=== PATIENT | female | born 1990 | race Caucasian/White ===

== ENCOUNTER 2019-12-21 23:40 | Emergency (ER) | payer SELFPAY ==
[2019-12-22 00:17] LABS: Absolute Lymphocytes (CBC) 4.2 K/uL (0.7-4.9); Basophils % 0.8 % (0-1.3); Hematocrit 41.3 % (36.0-45.0); Lymphocytes % 29.3 % (15.3-44.8); MPV 8.5 fL (7.6-11.3); RBC Red Blood Cell Count 4.74 M/uL (3.86-4.86)
[2019-12-22] MEDS ORDERED: FAMOTIDINE 20 MG/2 ML VIAL IV ONE (00:18)
[2019-12-22] MEDS ORDERED: ONDANSETRON 4 MG/2 ML VIAL ONE (00:18)
[2019-12-22] MEDS ORDERED: MORPHINE 4 MG/ML SYR ONE (00:18)
[2019-12-22] MEDS ORDERED: NA CHLORIDE 0.9% 1,000 ML ONE (00:19)
[2019-12-22 00:27] LABS: ALT/SGPT 31 U/L (12-78); AST/SGOT 18 U/L (15-37); Albumin 3.8 g/dL (3.4-5.0); Alkaline Phosphatase 90 U/L (45-117); BUN Blood Urea Nitrogen 11 mg/dL (7-18); Bicarbonate 26 mmol/L (21-32); Bilirubin Direct < 0.1 mg/dL (0-0.2); Bilirubin Total 0.2 mg/dL (0.2-1.0); Glucose Level 149 mg/dL (74-106); Lipase 193 U/L (73-393); Potassium 3.6 mmol/L (3.5-5.1); Protein, Total 8.1 g/dL (6.4-8.2); Sodium Level 140 mmol/L (136-145)
[2019-12-22] MEDS ORDERED: KETOROLAC 30 MG/ML INJ ONE (01:44)
--- NOTE | 2019-12-22 04:03 | EDPHYS ---
Physician Documentation [facility] Name: Maricel Karimi Age: 29 yrs Sex: Female : 1990 Arrival Date: 12/21/2019 Time: 23:43 Bed 6 Private MD: ED Physician Jimmie Faulkner HPI: 12/21 00:09 This 29 yrs old Female presents to ER via Ambulatory with complaints of mh7 GALLBLADDER ATTACK. 00:09 The patient presents with abdominal pain in the epigastric area. Onset: The mh7 symptoms/episode began/occurred 1 week(s) ago. 00:12 The symptoms radiate to back. Associated signs and symptoms: Pertinent positives: mh7 nausea, Pertinent negatives: anorexia, blood in stools, chest pain, constipation, diarrhea, dysuria, fever, headache, hematuria, palpitations, shortness of breath, vaginal discharge, vomiting, vomiting blood. The symptoms are described as intermittent, vague, waxing/waning. Modifying factors: The symptoms are alleviated by nothing, the symptoms are aggravated by food. Severity of pain: At its worst the pain was moderate today, in the emergency department the pain is unchanged. 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 - Social history:: Smoking status: Patient denies any tobacco usage or history of. ROS: 12/21 00:12 Constitutional: Negative for fever, chills, and weight loss, Eyes: Negative for injury, mh7 pain, redness, and discharge, ENT: Negative for injury, pain, and discharge, Neck: Negative for injury, pain, and swelling, Cardiovascular: Negative for chest pain, palpitations, and edema, Respiratory: Negative for shortness of breath, cough, wheezing, and pleuritic chest pain, : Negative for injury, bleeding, discharge, and swelling, MS/Extremity: Negative for injury and deformity, Skin: Negative for injury, rash, and discoloration, Neuro: Negative for headache, weakness, numbness, tingling, and seizure, Psych: Negative for depression, anxiety, suicide ideation, homicidal ideation, and hallucinations, Allergy/Immunology: Negative for hives, rash, and allergies, Endocrine: Negative for neck swelling, polydipsia, polyuria, polyphagia, and marked weight changes, Hematologic/Lymphatic: Negative for swollen nodes, abnormal bleeding, and unusual bruising. Exam: 00:12 Head/Face: Normocephalic, atraumatic. Eyes: Pupils equal round and reactive to light, mh7 extra-ocular motions intact. Lids and lashes normal. Conjunctiva and sclera are non-icteric and not injected. Cornea within normal limits. Periorbital areas with no swelling, redness, or edema. Neck: Trachea midline, no thyromegaly or masses palpated, and no cervical lymphadenopathy. Supple, full range of motion without nuchal rigidity, or vertebral point tenderness. No Meningismus. Chest/axilla: Normal chest wall appearance and motion. Nontender with no deformity. No lesions are appreciated. Cardiovascular: Regular rate and rhythm with a normal S1 and S2. No gallops, murmurs, or rubs. Normal PMI, no JVD. No pulse deficits. Respiratory: Lungs have equal breath sounds bilaterally, clear to auscultation and percussion. No rales, rhonchi or wheezes noted. No increased work of breathing, no retractions or nasal flaring. 00:12 Back: No spinal tenderness. No costovertebral tenderness. Full range of motion. Skin: Warm, dry with normal turgor. Normal color with no rashes, no lesions, and no evidence of cellulitis. MS/ Extremity: Pulses equal, no cyanosis. Neurovascular intact. Full, normal range of motion. Neuro: Awake and alert, GCS 15, oriented to person, place, time, and situation. Cranial nerves II-XII grossly intact. Motor strength 5/5 in all extremities. Sensory grossly intact. Cerebellar exam normal. Normal gait. Psych: Awake, alert, with orientation to person, place and time. Behavior, mood, and affect are within normal limits. 00:12 Constitutional: The patient appears in no acute distress, alert, awake, uncomfortable. 00:12 Abdomen/GI: Inspection: abdomen appears normal, Bowel sounds: normal, in all quadrants, Palpation: moderate abdominal tenderness, in the epigastric area, Rectal exam: the exam is deferred, because of patient request, Indicators: McBurney's point is not tender, Short's sign is negative, Rovsing's sign is negative, Obturator sign is negative, Psoas sign is negative, Liver: no appreciated palpable abnormalities, Hernia: not appreciated. Vital Signs: 12/20 23:50 BP 131 / 74; Pulse 88; Resp 16; Temp 98.4; Pulse Ox 100% on R/A; Weight 68.04 kg; iw Height 5 ft. 0 in. (152.40 cm); Pain 8/10; 12/21 00:25 BP 118 / 70; Pulse 85; Resp 16; Pulse Ox 99% ; Pain 5/10; mt2 01:24 BP 98 / 66; Pulse 70; Resp 16; Pulse Ox 98% on R/A; Pain 4/10; mt2 02:05 BP 99 / 68; Pulse 65; Resp 16; Pulse Ox 100% ; Pain 0/10; mt2 03:03 BP 116 / 65; Pulse 58; Resp 16; Pulse Ox 99% on R/A; Pain 0/10; mt2 04:12 BP 119 / 44; Pulse 57; Resp 16; Pulse Ox 99% ; Pain 0/10; mt2 12/20 23:50 Body Mass Index 29.29 (68.04 kg, 152.40 cm) iw MDM: 00:03 Patient medically screened. 7 04:00 Differential diagnosis: bowel obstruction, cholecystitis, Cholelithiasis, Ectopic mh7 , gastritis, gastroesophageal reflux disease, non-specific abd pain, Peptic Ulcer Disease, Perf. Duodenal Ulcer, Perf. Gastric Ulcer, Ureterolithiasis, urinary tract infection. Data reviewed: vital signs, nurses notes. Data interpreted: Pulse oximetry: on room air is 99 %. Interpretation: normal. Counseling: I had a detailed discussion with the patient and/or guardian regarding: the historical points, exam findings, and any diagnostic results supporting the discharge/admit diagnosis, lab results, radiology results, the need for outpatient follow up, to return to the emergency department if symptoms worsen or persist or if there are any questions or concerns that arise at home. Response to treatment: the patient's symptoms have resolved after treatment, the patient's blood pressure is in an acceptable range, mental status has returned to baseline, the patient no longer shows bradycardia, the patient is not short of breath, the patient is not tachycardic, the patient's pain is gone, the patient's temperature has normalized, the patient is now symptom free, patient is well hydrated. Physician consultation: Momo Landers MD regarding patient's condition, and will see patient in office. 12/20 23:51 Order name: Basic Metabolic Panel; Complete Time: 00:32 [facility] 12/20 23:51 Order name: CBC with Diff; Complete Time: 00:27 [facility] 12/20 23:51 Order name: Hepatic Function; Complete Time: 00:32 [facility] 12/20 23:51 Order name: Lipase; Complete Time: 00:32 [facility] 12/21 00:17 Order name: CT Abd/Pelvis - IV Contrast Only [facility] 12/20 23:51 Order name: IV Saline Lock; Complete Time: 23:51 [facility] 12/20 23:51 Order name: Labs collected and sent; Complete Time: 23:51 [facility] 12/20 23:51 Order name: Urine Dipstick-Ancillary (obtain specimen); Complete Time: 00:06 [facility] 12/21 00:04 Order name: Urine Test (obtain specimen); Complete Time: 00:06 [facility] Administered Medications: 00:12 Drug: NS 0.9% 1000 ml Route: IV; Rate: 1000 ml; Site: right antecubital; ea 01:23 Follow up: Response: No adverse reaction; IV Status: Completed infusion mt2 00:13 Not Given (Patient Refused): morphine 4 mg IVP once; RASS on ADMIN: Combtv4, Very ea Agttd3, Agttd2, Rstlss1, AlertClm0, Drwsy-1, Lt Sdtn-2, Mod Sdtn-3, Dp Sdtn-4, UnArsble-5 00:13 Drug: Zofran (Ondansetron) 4 mg Route: IVP; Site: right antecubital; ea 01:22 Follow up: Response: No adverse reaction; Pain is decreased mt2 00:13 Drug: Pepcid 20 mg Route: IVP; Site: right antecubital; ea 01:22 Follow up: Response: No adverse reaction; Pain is decreased mt2 01:36 Drug: TORadol 30 mg Route: IVP; Site: right antecubital; ea 01:49 Follow up: Response: No adverse reaction; Pain is decreased ea 02:06 Follow up: Response: No adverse reaction; Pain is decreased mt2 Disposition: 06:48 Co-signature as Attending Physician, Jimmie Faulkner MD. mh7 Disposition: 12/22/19 04:03 Discharged to Home. Impression: Cholelithiasis. - Condition is Stable. - Discharge Instructions: Cholelithiasis, [id number], Fat and Cholesterol Restricted Diet, [id number]. - Prescriptions for Augmentin 875- 125 mg Oral Tablet - take 1 tablet by ORAL route every 12 hours for 5 days; 10 tablet. Bentyl 20 mg Oral Tablet - take 1 tablet by ORAL route every 6 hours As needed; 20 tablet. - Medication Reconciliation Form, Thank You Letter, Antibiotic Education, Prescription Opioid Use form. - Follow up: Momo Landers MD; When: 2 - 3 days; Reason: Worsening of condition, Recheck today's complaints. - Problem is new. - Symptoms have improved. Signatures: Dispatcher [employer] EDSherry Overton RN RN iw Antunez, Elena, RN RN ea Holmes, Maurice, MD MD 7 Anne-Marie Howe RN RN mt2 Corrections: (The following items were deleted from the chart) 04:13 04:03 12/22/2019 04:03 Discharged to Home. Impression: Cholelithiasis. Condition is mt2 Stable. Forms are Medication Reconciliation Form, Thank You Letter, Antibiotic Education, Prescription Opioid Use. Follow up: Momo Landers; When: 2 - 3 days; Reason: Worsening of condition, Recheck today's complaints. Problem is new. Symptoms have improved. 7
--- NOTE | 2019-12-22 04:03 | ER ---
Nurse's Notes [facility] Name: Maricel Karimi Age: 29 yrs Sex: Female : 1990 Arrival Date: 12/21/2019 Time: 23:43 Bed 6 Private MD: Diagnosis: Cholelithiasis Presentation: 12/20 23:50 Chief complaint: Patient states: upper abd pain radiating to her back on and off for a iw year , gotten worse for past week, +nausea, no vomiting or diarrhea. Coronavirus screen: At this time, the client does not indicate any symptoms associated with coronavirus-19. Ebola Screen: Patient negative for fever greater than or equal to 101.5 degrees Fahrenheit, and additional compatible Ebola Virus Disease symptoms Patient denies exposure to infectious person. Patient denies travel to an Ebola-affected area in the 21 days before illness onset. No symptoms or risks identified at this time. Initial Sepsis Screen: Does the patient meet any 2 criteria? No. Patient's initial sepsis screen is negative. Does the patient have a suspected source of infection? No. Patient's initial sepsis screen is negative. Risk Assessment: Do you want to hurt yourself or someone else? Patient reports no desire to harm self or others. Onset of symptoms was 2019. 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 - Social history:: Smoking status: Patient denies any tobacco usage or history of. Screenin:52 Abuse screen: Denies threats or abuse. Nutritional screening: No deficits noted. mt2 Tuberculosis screening: No symptoms or risk factors identified. Fall Risk None identified. Assessment: 23:52 General: Appears uncomfortable, Behavior is appropriate for age. Pain: Complains of ea pain in epigastric area Pain radiates to posterior aspect of right lateral abdomen. Neuro: Level of Consciousness is awake, alert, obeys commands, Oriented to person, place, time. Cardiovascular: Patient's skin is warm and dry. GI: Abdomen is non-distended. Derm: Skin is pink, warm \T\ dry. 12/21 00:30 Reassessment: Patient and/or family updated on plan of care and expected duration. Pain mt2 level reassessed. Patient is alert, oriented x 3, equal unlabored respirations, skin warm/dry/pink. General: Appears uncomfortable, Behavior is appropriate for age. Pain: Complains of pain in abdomen Pain currently is 6 out of 10 on a pain scale. 01:24 Reassessment: Patient and/or family updated on plan of care and expected duration. Pain mt2 level reassessed. Patient is alert, oriented x 3, equal unlabored respirations, skin warm/dry/pink. Patient states symptoms have improved. General: Appears comfortable, Behavior is calm. Pain: Denies pain. 02:05 Reassessment: Patient and/or family updated on plan of care and expected duration. Pain mt2 level reassessed. Patient is alert, oriented x 3, equal unlabored respirations, skin warm/dry/pink. Patient states symptoms have improved. General: Appears comfortable, Behavior is appropriate for age. Pain: Denies pain. Respiratory: No deficits noted. : No deficits noted. EENT: No deficits noted. Musculoskeletal: No deficits noted. 03:03 Reassessment: Patient and/or family updated on plan of care and expected duration. Pain mt2 level reassessed. Patient is alert, oriented x 3, equal unlabored respirations, skin warm/dry/pink. Patient denies pain at this time. Patient states symptoms have improved. General: Appears comfortable, Behavior is calm. 04:12 Reassessment: Patient and/or family updated on plan of care and expected duration. Pain mt2 level reassessed. Patient is alert, oriented x 3, equal unlabored respirations, skin warm/dry/pink. Patient denies pain at this time. Patient states symptoms have improved. General: Appears comfortable, Behavior is calm. Vital Signs: 12/20 23:50 BP 131 / 74; Pulse 88; Resp 16; Temp 98.4; Pulse Ox 100% on R/A; Weight 68.04 kg; iw Height 5 ft. 0 in. (152.40 cm); Pain 8/10; 12/21 00:25 BP 118 / 70; Pulse 85; Resp 16; Pulse Ox 99% ; Pain 5/10; mt2 01:24 BP 98 / 66; Pulse 70; Resp 16; Pulse Ox 98% on R/A; Pain 4/10; mt2 02:05 BP 99 / 68; Pulse 65; Resp 16; Pulse Ox 100% ; Pain 0/10; mt2 03:03 BP 116 / 65; Pulse 58; Resp 16; Pulse Ox 99% on R/A; Pain 0/10; mt2 04:12 BP 119 / 44; Pulse 57; Resp 16; Pulse Ox 99% ; Pain 0/10; mt2 12/20 23:50 Body Mass Index 29.29 (68.04 kg, 152.40 cm) iw ED Course: 12/20 23:43 Patient arrived in ED. es 23:45 Anne-Marie Howe, FIDELIA is Primary Nurse. mt2 23:48 Jimmie Faulkner MD is Attending Physician. [facility] 23:51 Initial lab(s) drawn, by ED staff, sent to lab. Inserted saline lock: 20 gauge in right mt2 antecubital area, using aseptic technique. Blood collected. 23:52 Triage completed. iw 23:52 Placed in gown. Bed in low position. Call light in reach. Side rails up X 1. mt2 23:52 Arm band placed on right wrist. Patient placed in an exam room, on a stretcher, on ea pulse oximetry. 12/21 00:57 CT Abd/Pelvis - IV Contrast Only In Process Unspecified. EDMS 04:02 Momo Landers MD is Referral Physician. [facility] 04:12 No provider procedures requiring assistance completed. IV discontinued, intact, mt2 bleeding controlled, No redness/swelling at site. Pressure dressing applied. Administered Medications: 00:12 Drug: NS 0.9% 1000 ml Route: IV; Rate: 1000 ml; Site: right antecubital; ea 01:23 Follow up: Response: No adverse reaction; IV Status: Completed infusion mt2 00:13 Not Given (Patient Refused): morphine 4 mg IVP once; RASS on ADMIN: Combtv4, Very ea Agttd3, Agttd2, Rstlss1, AlertClm0, Drwsy-1, Lt Sdtn-2, Mod Sdtn-3, Dp Sdtn-4, UnArsble-5 00:13 Drug: Zofran (Ondansetron) 4 mg Route: IVP; Site: right antecubital; ea 01:22 Follow up: Response: No adverse reaction; Pain is decreased mt2 00:13 Drug: Pepcid 20 mg Route: IVP; Site: right antecubital; ea 01:22 Follow up: Response: No adverse reaction; Pain is decreased mt2 01:36 Drug: TORadol 30 mg Route: IVP; Site: right antecubital; ea 01:49 Follow up: Response: No adverse reaction; Pain is decreased ea 02:06 Follow up: Response: No adverse reaction; Pain is decreased mt2 Outcome: 04:03 Discharge ordered by James 04:13 Condition: stable ea 04:13 Discharged to home ambulatory. mt2 04:13 Condition: good 04:13 Discharge instructions given to patient, Instructed on discharge instructions, follow up and referral plans. medication usage, Demonstrated understanding of instructions, follow-up care, medications, Prescriptions given X 2. 04:13 Patient left the ED. mt2 Signatures: Dispatcher [employer] Rosenda Dean Irene, RN Talita Camilo RN RN ea Holmes, Maurice, MD MD [facility] Anne-Marie Howe RN RN mt2
--- NOTE | 2019-12-22 12:37 | RAD REPORT ---
EXAM DESCRIPTION: CT - Abdomen Pelvis W Contrast - 12/22/2019 3:13 am COMPARISON: None CLINICAL HISTORY: Abdominal pain TECHNIQUE: Multiple helical axial images were obtained through the abdomen and pelvis using intraven ous contrast. Coronal and sagittal reformatted images were obtained. All CT scans at this facility use dose modulation, iterative reconstruction, and/or weight-based dosi ng when appropriate to reduce radiation dose to as low as reasonably achievable. FINDINGS: Lung bases: Mild basilar atelectasis noted. Liver: There is mild low attenuation which may reflect fatty changes. Gallbladder/biliary: There are few small calcific densities in the gallbladder compatible with stones . No evidence of pericholecystic inflammation. No biliary ductal dilatation. Pancreas: Unremarkable. No evidence of ductal enlargement. Spleen: Appears unremarkable. No splenomegaly. Adrenals: Unremarkable. Kidneys and ureters: No evidence of hydronephrosis. Normal enhancement. Bladder: Unremarkable. Pelvic organs: Small right-sided corpus luteal cyst noted. Bowel: No evidence of bowel obstruction. No bowel wall thickening. Appendix appears unremarkable. Vasculature: Unremarkable. Peritoneum: No free air. No significant free fluid. Lymph nodes: Unremarkable. Soft tissues: Unremarkable. Bones: Unremarkable. IMPRESSION: 1. No evidence for an acute process within the abdomen or pelvis. 2. Cholelithiasis. Electronically signed by: Miguel Zaragoza MD 12/22/2019 1:21 AM CDT Due to temporary technical issues with the PACS/Fluency reporting system, reports are being signed by the in house radiologist without review as a courtesy to ensure prompt reporting. The interpreting r adiologist is fully responsible for the content of the report.
[2019-12-26 19:33] VITALS: TEMP 98.4
[2019-12-26 19:37] VITALS: O2SAT 99
[2019-12-26 19:38] VITALS: BP 119/44
== END 2019-12-22 04:13 | disposition home or self-care (01) ==
LOC: ER 23:40
DX: K80.20 Calculus of gallbladder without cholecystitis without obstruction (principal); Z88.2 Allergy status to sulfonamides
CPT/HCPCS: 36415; 74177; 80048; 80076; 83690; 85025; 96361; 96374; 96375; 99284; J2405; J7030; Q9967

== ENCOUNTER 2020-01-14 07:56 | Inpatient (IN) | payer SELFPAY ==
[2020-01-14] MEDS ORDERED: MORPHINE 4 MG/ML SYR ONE (08:32)
[2020-01-14] MEDS ORDERED: ONDANSETRON 4 MG/2 ML VIAL ONE (08:32)
[2020-01-14] MEDS ORDERED: NA CHLORIDE 0.9% 1,000 ML ONE (08:33)
[2020-01-14 08:39] LABS: Absolute Lymphocytes (CBC) 3.4 K/uL (0.7-4.9); Basophils % 0.6 % (0-1.3); Hematocrit 40.1 % (36.0-45.0); Lymphocytes % 29.9 % (15.3-44.8); MPV 8.2 fL (7.6-11.3); RBC Red Blood Cell Count 4.63 M/uL (3.86-4.86); Urine Blood NEGATIVE (NEG); Urine Glucose NEGATIVE (NEG); Urine Protein NEGATIVE (NEG); Urine pH 5.5 (5.0-7.0)
[2020-01-14] MEDS ORDERED: KETOROLAC 30 MG/ML INJ ONE (08:42)
[2020-01-14] MEDS ORDERED: FAMOTIDINE 20 MG/2 ML VIAL IV ONE (08:43)
[2020-01-14 08:56] LABS: ALT/SGPT 34 U/L (12-78); AST/SGOT 19 U/L (15-37); Albumin 3.5 g/dL (3.4-5.0); Alkaline Phosphatase 94 U/L (45-117); BUN Blood Urea Nitrogen 11 mg/dL (7-18); Bicarbonate 29 mmol/L (21-32); Bilirubin Direct < 0.1 mg/dL (0-0.2); Bilirubin Total 0.3 mg/dL (0.2-1.0); Glucose Level 117 mg/dL (74-106); Lipase 175 U/L (73-393); Potassium 3.9 mmol/L (3.5-5.1); Protein, Total 7.6 g/dL (6.4-8.2); Sodium Level 142 mmol/L (136-145)
[2020-01-14] MEDS ORDERED: DICYCLOMINE HCL 20 MG/2 ML AMP IM ONE ×2 (09:00→09:33)
--- NOTE | 2020-01-14 09:19 | RAD REPORT ---
EXAM DESCRIPTION: US - Abdomen Exam Limited - 01/14/2020 9:04 am CLINICAL HISTORY: Abdominal pain. FINDINGS: Multiple gallstones. Small amount of gallbladder sludge. . A gallstone is not seen. The biliary tree is normal caliber. Gallbladder wall upper limits normal thickness. Mild gallbladder distention IMPRESSION: Cholelithiasis Mild gallbladder distention
--- NOTE | 2020-01-14 10:17 | EDPHYS ---
Physician Documentation [facility] Name: Maricel Karimi Age: 29 yrs Sex: Female : 1990 Arrival Date: 01/14/2020 Time: 08:01 Bed 6 Private MD: ED Physician Jimmie Faulkner HPI: 01/13 08:14 This 29 yrs old Female presents to ER via Ambulatory with complaints of jmm Abdominal Pain. 08:14 The patient presents with abdominal pain in the epigastric area. Onset: The jmm symptoms/episode began/occurred gradually, 2 week(s) ago. The symptoms radiate to Associated signs and symptoms: Pertinent positives: nausea, Pertinent negatives: diarrhea, shortness of breath. The symptoms are described as achy. This is a 29 year old female with a history of PE that presents to the ED with complaints of abdominal pain which has been ongoing for the past 2 weeks worsening today. Pain radiates to the back. Denies vomiting, diarrhea. . [employer]: 08:13 LMP 12/27/2019 aa5 Historical: - Allergies: 08:12 Sulfa (Sulfonamide Antibiotics); aa5 - PMHx: 08:12 PE; aa5 - PSHx: 08:12 ; Hernia repair; aa5 - Immunization history:: Adult Immunizations up to date. - Social history:: Smoking status: Patient denies any tobacco usage or history of. ROS: 08:14 Constitutional: Negative for fever, chills, and weight loss, Cardiovascular: Negative jmm for chest pain, palpitations, and edema, Respiratory: Negative for shortness of breath, cough, wheezing, and pleuritic chest pain. 08:14 Abdomen/GI: Positive for abdominal pain, nausea. 08:14 Back: Positive for radiated pain. 08:14 All other systems are negative. Exam: 08:14 Constitutional: This is a well developed, well nourished patient who is awake, alert, jmm and in no acute distress. Head/Face: atraumatic. Eyes: EOMI, no conjunctival erythema appreciated ENT: Moist Mucus Membranes Neck: Trachea midline, Supple Chest/axilla: Normal chest wall appearance and motion. Cardiovascular: Regular rate and rhythm. No edema appreciated Respiratory: Normal respirations, no respiratory distress appreciated 08:14 Back: Normal ROM Skin: General appearance color normal MS/ Extremity: Moves all extremities, no obvious deformities appreciated, no edema noted to the lower extremities Neuro: Awake and alert, normal gait Psych: Behavior is normal, Mood is normal, Patient is cooperative and pleasant 08:14 Abdomen/GI: Inspection: abdomen appears normal, Bowel sounds: normal, Palpation: soft, moderate abdominal tenderness, in the right upper quadrant. Vital Signs: 08:01 BP 107 / 88; Pulse 90; Resp 18 S; Temp 98.8(O); Pulse Ox 100% on R/A; Weight 71.67 kg aa5 (R); Height 5 ft. 0 in. (152.40 cm) (R); Pain 9/10; 09:30 BP 112 / 57; Pulse 69; Resp 18 S; Pulse Ox 100% on R/A; aa5 11:00 BP 121 / 74; Pulse 68; Resp 16 S; Temp 98.0(TE); Pulse Ox 100% on R/A; aa5 12:05 BP 102 / 57; Pulse 60; Resp 17; Pulse Ox 98% ; jl7 08:01 Body Mass Index 30.86 (71.67 kg, 152.40 cm) aa5 MDM: 08:14 Patient medically screened. [facility] 10:21 Data reviewed: vital signs, nurses notes. Counseling: I had a detailed discussion with jb the patient and/or guardian regarding: the historical points, exam findings, and any diagnostic results supporting the discharge/admit diagnosis, lab results, the need for further work-up and treatment in the hospital. ED course: I discussed the patient with Dr. Llamas whom accepted admission. I discussed the patient with Dr. Lopez whom will consult on admission due to previous PE. . 01/13 08:14 Order name: Basic Metabolic Panel; Complete Time: 09: [facility] 01/13 08:14 Order name: CBC with Diff; Complete Time: : [facility] 01/13 08:14 Order name: Hepatic Function; Complete Time: : [facility] 01/13 08:14 Order name: Lipase; Complete Time: 09: [facility] 01/13 08:26 Order name: Urine Dipstick--Ancillary (enter results); Complete Time: 09: 01/13 08:26 Order name: Urine --Ancillary (enter results); Complete Time: : 01/13 10:31 Order name: Basic Metabolic Panel [facility] 01/13 10:31 Order name: Basic Metabolic Panel [facility] 01/13 10:31 Order name: Lipase [facility] 01/13 10:31 Order name: Lipase [facility] 01/13 10:31 Order name: Liver (Hepatic) Function [facility] 01/13 10:31 Order name: Liver (Hepatic) Function [facility] 01/13 10:32 Order name: CBC with Automated Diff [facility] 01/13 10:32 Order name: CBC with Automated Diff [facility] 01/13 08:14 Order name: IV Saline Lock; Complete Time: 08:[address] [facility] 01/13 08:14 Order name: Labs collected and sent; Complete Time: 08:[address] [facility] 01/13 08:14 Order name: Urine Dipstick-Ancillary (obtain specimen); Complete Time: 08:[address] [facility] 01/13 08:14 Order name: Urine Test (obtain specimen); Complete Time: 08:[address] [facility] 01/13 08:30 Order name: US Abdomen Limited; Complete Time: 09:[address] [facility] 01/13 10:31 Order name: CONS Physician Consult [facility] 01/13 10:31 Order name: NPO [facility] Administered Medications: 08:26 Drug: NS 0.9% 1000 ml Route: IV; Rate: 1 bolus; Site: right antecubital; aa5 09:30 Follow up: IV Status: Completed infusion; IV Intake: 1000ml aa5 08:26 Drug: Zofran (Ondansetron) 4 mg Route: IVP; Site: right antecubital; aa5 08:31 Follow up: Response: No adverse reaction aa5 08:35 Drug: Ketorolac 30 mg Route: IVP; Site: right antecubital; aa5 08:40 Follow up: Response: No adverse reaction aa5 08:35 Drug: Pepcid 20 mg Route: IVP; Site: right antecubital; aa5 08:40 Follow up: Response: No adverse reaction aa5 08:36 Not Given (Patient Refused): morphine 4 mg IVP once; RASS on ADMIN: Combtv4, Very aa5 Agttd3, Agttd2, Rstlss1, AlertClm0, Drwsy-1, Lt Sdtn-2, Mod Sdtn-3, Dp Sdtn-4, UnArsble-5 10:45 Drug: Zosyn 3.375 grams Route: IVPB; Infused Over: 60 mins; Site: right antecubital; aa5 11:45 Follow up: Response: No adverse reaction; IV Status: Completed infusion aa5 12:15 Not Given (Patient Refused): Bentyl 20 mg IM once aa5 Disposition: 01/14 05:03 Co-signature as Attending Physician, Jimmie Faulkner MD. mh7 Disposition: 01/14/20 10:16 Hospitalization ordered by Grey Llamas for Inpatient Admission. Preliminary diagnosis is Acute cholecystitis. - Bed requested for Telemetry/MedSurg (Inpatient). - Status is Inpatient Admission. eb - Condition is Stable. - Problem is new. - Symptoms are unchanged. Signatures: Dispatcher [employer] EDMS Dakota Alvarado PA PA jmm Calderon, Audri, RN RN aa5 Jennifer Rubio Maurice, MD MD mh7 Corrections: (The following items were deleted from the chart) 01/13 10:19 08:14 This is a 29 year old female with a history of PE that presents to the ED with [facility] complaints of abdominal pain which has been ongoing for the. [facility] : 10:18 The history from the nurse's notes was reviewed. [facility] 11:51 10:16 Hospitalization Ordered by Grey Llamas MD for Inpatient Admission. Preliminary eb diagnosis is Acute cholecystitis. Bed requested for Telemetry/MedSurg (Inpatient). Status is Inpatient Admission. Condition is Stable. Problem is new. Symptoms are unchanged. [facility] 13:43 11:51 01/14/2020 10:16 Hospitalization Ordered by Grey Llamas MD for Inpatient eb Admission. Preliminary diagnosis is Acute cholecystitis. Bed requested for Telemetry/MedSurg (Inpatient). Status is Inpatient Admission. Condition is Stable. Problem is new. Symptoms are unchanged. eb
--- NOTE | 2020-01-14 10:17 | ER ---
Nurse's Notes [facility] Name: Maricel Karimi Age: 29 yrs Sex: Female : 1990 Arrival Date: 01/14/2020 Time: 08:01 Bed 6 Private MD: Diagnosis: Acute cholecystitis Presentation: 01/13 08:01 Chief complaint: Patient states: epigastric pain radiating to back with nausea. Denies aa5 vomiting. Pt states "I was here a couple of weeks ago and they said I have gallstones but don't have the money to follow-up". 08:01 Coronavirus screen: Client denies travel out of the [place] in the last 14 days. At this aa5 time, the client does not indicate any symptoms associated with coronavirus-19. Ebola Screen: Patient negative for fever greater than or equal to 101.5 degrees Fahrenheit, and additional compatible Ebola Virus Disease symptoms. Initial Sepsis Screen: Does the patient meet any 2 criteria? No. Patient's initial sepsis screen is negative. Does the patient have a suspected source of infection? No. Patient's initial sepsis screen is negative. Risk Assessment: Do you want to hurt yourself or someone else? Patient reports no desire to harm self or others. Onset of symptoms was 2019. 08:01 Acuity: DUGLSA 3 aa5 08:01 Method Of Arrival: Ambulatory aa5 [employer]: 08:13 LMP 12/27/2019 aa5 Historical: - Allergies: 08:12 Sulfa (Sulfonamide Antibiotics); aa5 - PMHx: 08:12 PE; aa5 - PSHx: 08:12 ; Hernia repair; aa5 - Immunization history:: Adult Immunizations up to date. - Social history:: Smoking status: Patient denies any tobacco usage or history of. Screenin:30 Abuse screen: Denies threats or abuse. Nutritional screening: No deficits noted. aa5 Tuberculosis screening: No symptoms or risk factors identified. Fall Risk None identified. Assessment: 08:01 General: Appears uncomfortable, Behavior is calm, cooperative. Pain: Complains of pain aa5 in epigastric area Pain radiates to back Pain currently is 9 out of 10 on a pain scale. Quality of pain is described as sharp, shooting, Pain began 2-3 weeks ago Is continuous. Neuro: Level of Consciousness is awake, alert, obeys commands, Oriented to person, place, time, situation. Cardiovascular: Heart tones S1 S2 present Patient's skin is warm and dry. Rhythm is regular. Respiratory: Airway is patent Respiratory effort is even, unlabored, Respiratory pattern is regular, symmetrical. GI: Abdomen is round Bowel sounds present X 4 quads. Abdomen is tender to palpation in epigastric area Reports nausea, Patient currently denies diarrhea, vomiting. : No signs and/or symptoms were reported regarding the genitourinary system. EENT: No signs and/or symptoms were reported regarding the EENT system. Derm: Skin is pink, warm \\T\\ dry. Musculoskeletal: Range of motion: intact in all extremities. 08:30 Reassessment: Pt refused morphine, pt states "I don't like the way morphine makes me aa5 feel", pt reports she prefers non-narcotics, PA was notified. . 08:35 Reassessment: Patient is alert, oriented x 3, equal unlabored respirations, skin aa5 warm/dry/pink. Pt lying down in bed. Pt notified of wait time for lab results. Warm blanket provided for comfort. . 08:35 Reassessment: Awaiting Bentyl from pharmacy . aa5 08:50 Reassessment: US at bedside. . aa5 09:22 Reassessment: To bedside to administer Bentyl, pt states "I am feeling better after the aa5 Toradol so I would like to hold off on the other medicine for now". Pt appears comfortable. Pt now ambulatory to restroom. . 09:55 Reassessment: PA at bedside discussing POC with pt . aa5 10:44 Reassessment: Pt ambulatory to restroom, pt placed back in bed. Dr. Lopez (hospitalist) aa5 at bedside at this time. . 12:00 Reassessment: Patient is alert, oriented x 3, equal unlabored respirations, skin aa5 warm/dry/pink. Pt notified of room assignment and wait time to be transported to Room 215. . 12:50 Reassessment: Unsuccessful attempt to call report to admitting nurse. . aa5 Vital Signs: 08:01 BP 107 / 88; Pulse 90; Resp 18 S; Temp 98.8(O); Pulse Ox 100% on R/A; Weight 71.67 kg aa5 (R); Height 5 ft. 0 in. (152.40 cm) (R); Pain 9/10; 09:30 BP 112 / 57; Pulse 69; Resp 18 S; Pulse Ox 100% on R/A; aa5 11:00 BP 121 / 74; Pulse 68; Resp 16 S; Temp 98.0(TE); Pulse Ox 100% on R/A; aa5 12:05 BP 102 / 57; Pulse 60; Resp 17; Pulse Ox 98% ; jl7 08:01 Body Mass Index 30.86 (71.67 kg, 152.40 cm) aa5 ED Course: 08:01 Patient arrived in ED. bg2 08:01 Radha Britton, RN is Primary Nurse. aa5 08: Arm band placed on Patient placed in an exam room, on a stretcher. aa5 08:01 Patient has correct armband on for positive identification. Bed in low position. Call aa light in reach. Side rails up X 1. Pulse ox on. NIBP on. 08:10 Dakota Alvarado PA is PHCP. [facility] 08:10 Jimmie Faulkner MD is Attending Physician. [facility] 08:10 Urine collected: clean catch specimen, clear. aa5 08:12 Triage completed. aa5 08:26 Initial lab(s) drawn, by nc, sent to lab. Inserted saline lock: 20 gauge in right aa5 antecubital area, using aseptic technique. Blood collected. 09:04 US Abdomen Limited In Process Unspecified. EDMS 09:04 Ultrasound completed. Patient tolerated well. sg3 10:16 Grey Llamas MD is Hospitalizing Provider. [facility] Administered Medications: : Drug: NS 0.9% 1000 ml Route: IV; Rate: 1 bolus; Site: right antecubital; aa5 09:30 Follow up: IV Status: Completed infusion; IV Intake: 1000ml aa5 :26 Drug: Zofran (Ondansetron) 4 mg Route: IVP; Site: right antecubital; aa5 08:31 Follow up: Response: No adverse reaction aa5 08:35 Drug: Ketorolac 30 mg Route: IVP; Site: right antecubital; aa5 08:40 Follow up: Response: No adverse reaction aa5 08:35 Drug: Pepcid 20 mg Route: IVP; Site: right antecubital; aa5 08:40 Follow up: Response: No adverse reaction aa5 08:36 Not Given (Patient Refused): morphine 4 mg IVP once; RASS on ADMIN: Combtv4, Very aa5 Agttd3, Agttd2, Rstlss1, AlertClm0, Drwsy-1, Lt Sdtn-2, Mod Sdtn-3, Dp Sdtn-4, UnArsble-5 10:45 Drug: Zosyn 3.375 grams Route: IVPB; Infused Over: 60 mins; Site: right antecubital; aa5 11:45 Follow up: Response: No adverse reaction; IV Status: Completed infusion aa5 12:15 Not Given (Patient Refused): Bentyl 20 mg IM once aa5 Intake: 09:30 IV: 1000ml; Total: 1000ml. aa5 Outcome: 10:16 Decision to Hospitalize by Provider. jm 13:20 Patient left the ED. aa5 13:20 Admitted to Med/surg accompanied by tech, via wheelchair, with chart. aa5 13:20 Condition: stable 13:20 Instructed on the need for admit, Demonstrated understanding of instructions. Signatures: Dispatcher [employer] EDMS Dakota Alvarado PA PA jmm Calderon, Audri, RN RN aa5 Rosemary Roach 2 Oneal Bennett RN RN jl7 Rafaela Yost3 Jennifer Rubio Corrections: (The following items were deleted from the chart) 08:41 08:35 Reassessment: Pt lying down in bed. Pt notified of wait time for lab results. . aa5 aa5 10:20 10:18 The history from the nurse's notes was reviewed. jb muhammad 13:19 11:00 BP 121 / 74; Pulse 68bpm; Resp 16bpm; Spontaneous; Pulse Ox 100% RA; aa5 aa5 21:30 13:43 Patient left the ED. eb aa5
[2020-01-14] MEDS ORDERED: ONDANSETRON 4 MG/2 ML VIAL IV PRN (10:29)
[2020-01-14] MEDS ORDERED: ACETAMINOPHEN 500 MG TAB PO PRN (10:29)
--- NOTE | 2020-01-14 11:06 | P.CNS ---
Date of Consult: 01/14/20 Consulted by ED due to history of PE. 29-year-old female who is presenting for progressively worsening right upper quadrant and epigastric abdominal pain. She states the symptoms have been off and on for several weeks now but more severe in the past 2 weeks. The pain seems to come and go, and was significant this morning. She states it was so severe she did not want to take a breath due to the abdominal pain. In the ED labs were notable for a very mild leukocytosis of 11.2, normal BMP, LFTs, lipase. Right upper quadrant ultrasound: Multiple gallstones, gallbladder sludge, gallbladder wall upper limits of normal thickness, mild gallbladder distention. ED consulted Dr. Llamas of general surgery, who recommended admission and will likely need to undergo cholecystectomy. Patient has a remote history of a provoked pulmonary embolism when she was 18 years old. She states she became short of breath approximately 1 week after C- section. She was treated with Coumadin for 1 year, and subsequently treated with Lovenox during her following pregnancies. Otherwise she has been off anticoagulation. She reports no family history of PEs are blood clots with the exception of her paternal grandmother who she believes had a blood clot. ROS: denies vision changes, hearing changes, chest pain, SOB, dysuria, diarrhea, rashes, lesions, edema Past surgical history: prior cesarian sections Social history: Never smoker, no alcohol Family history: as noted in HPI PE: Gen: NAD HEENT: sclera anicteric, MMM CV: RRR, no m/r/g Pulm: CTAB, no w/r/r Abd: soft, moderate TTP in RUQ and epigastrium Ext: no tenderness, no swelling Neuro: AAOx3, normal affect A/P RUQ pain, ?acute cholecystitis -admitted to general surgery, likely to OR tomorrow -pain control, IVF, Abx, diet per primary team h/o PE (provoked) -given that it was provoked and patient has been stable for several years off anticoagulation, patient does not require full anticoagulation at this time -recommend DVT prophylaxis with heparin, can hold tomorrow morning for surgery
--- NOTE | 2020-01-14 14:10 | HP ---
Date of Admission: 01/14/2020 Reason For Service: Epigastric right upper quadrant pain, acute cholecystitis, symptomatic cholelith iasis. History Of Present Illness: This is the case of a 29-year-old patient who comes to us with nausea, v omiting, epigastric right upper quadrant pain radiating to the back associated with nausea and vomiti ng. The patient had a prior episode like that about 2 weeks ago. She was apparently seen in ER, miguel pyle sent home and advised to see a surgeon, but she has not been able to do so, now comes with th e same symptoms. She was eating. She could not get for GI-View yesterday. She denies any dysuria , hematuria, hematochezia, melena. Denies any recent traveling out of the country. Denies any famil y member sick at home. She stated she has history of PE when she had a when she was 18 yea rs old, but she has not had anything since then. She is not on any blood thinners. She has no calf tenderness and no leg swelling. Allergies: SULFA. Past Medical History: PE. Past Surgical History: Include bilateral inguinal hernia repair when she was 5 years old and cesarea n section. Social History: She does smoke. She does not drink alcohol. Review of Systems: Ten points otherwise unremarkable. Physical Examination: General: The patient is awake, alert. Eyes: Pupils are equal, reactive, anicteric. Neck: Supple. Chest: Clear. Heart: S1, S2. Abdomen: Epigastric right upper quadrant tenderness. Short sign positive. Breasts: Deferred. Pelvic: Deferred. Rectal: Deferred. Extremities: Good capillary refill. Neuro: Cranial nerves 2-12 within normal limits. Laboratory Data: CBC shows WBC count of 11.2, hemoglobin of 13.8, potassium 3.9, creatinine is 0.8, lipase 175, total bilirubin of 0.3. UA, urine negative, blood, nitrite negative. Ultrasou nd of the right upper quadrant interpreted by Dr. Chapman as cholelithiasis, mild gallbladder distent ion, and gallbladder wall thickening. Assessment: This is a 29-year-old patient with acute cholecystitis, symptomatic cholelithiasis. Mino efits, alternatives, and risks of laparoscopic, possible open cholecystectomy fully explained, which include, but not limited to infection, bleeding, damage to adjacent structures, anesthesia complicati on, choledocholithiasis, bile leak, pancreatitis, NH, and even . She also understands this may not relieve the symptoms. She might need more than one surgical intervention. We are going to start the antibiotics, n.p.o., and then we will proceed accordingly. JONAH/GEORGE Voice ID: [id number]
[2020-01-14] MEDS: D5 0.45 NS 1,000 ML IV SCH ×2 (14:18→21:24)
[2020-01-14 15:11] VITALS: BMI 30.8
[2020-01-14] MEDS: PIPER/TAZO/NS 3.375gm 3.375 GM/100 ML BAG IVPB SCH (17:25)
[2020-01-14] MEDS ORDERED: MEPERIDINE HCL 25 MG/ML SYR IV PRN (18:13)
[2020-01-14] MEDS ORDERED: HEPARIN 5000 UNIT/ML 1 ML VIAL SQ SCH (21:00)
[2020-01-15] MEDS: PIPER/TAZO/NS 3.375gm 3.375 GM/100 ML BAG IVPB SCH ×2 (01:55→09:07)
[2020-01-15 06:03] LABS: Hematocrit 37.8 % (36.0-45.0); MPV 8.5 fL (7.6-11.3)
[2020-01-15 06:23] LABS: Albumin 3.2 g/dL (3.4-5.0); Bilirubin Direct 0.1 mg/dL (0-0.2); Bilirubin Total 0.4 mg/dL (0.2-1.0); Potassium 3.9 mmol/L (3.5-5.1); Protein, Total 6.7 g/dL (6.4-8.2)
[2020-01-15] MEDS: D5 0.45 NS 1,000 ML IV SCH (08:21)
[2020-01-15] MEDS ORDERED: FENTANYL CITR 100 MCG/2 ML ONE (09:55)
[2020-01-15] MEDS ORDERED: MIDAZOLAM HCL 2 MG/2 ML INJ ONE (09:56)
[2020-01-15] MEDS ORDERED: dexAMETHasone 4 MG/ML VIAL ONE (09:56)
[2020-01-15] MEDS ORDERED: KETOROLAC 30 MG/ML INJ ONE (09:56)
[2020-01-15] MEDS ORDERED: GLYCOPYRROLATE 0.2 MG/ML SYR ONE (09:56)
[2020-01-15] MEDS ORDERED: propofoL 200 MG/20 ML VIAL IV ONE (09:56)
[2020-01-15] MEDS ORDERED: LIDOCAINE 1% MPF 5 ML VIAL ONE (09:56)
[2020-01-15] MEDS ORDERED: ONDANSETRON 4 MG/2 ML VIAL ONE (09:56)
[2020-01-15] MEDS ORDERED: NEOSTIGMINE 1 MG/ML -5 ML ONE (09:57)
[2020-01-15] MEDS ORDERED: ROCURONIUM 50 MG/5 ML VIAL IV ONE (09:57)
[2020-01-15] MEDS ORDERED: Ringers Lactate 1,000 ML IV ONE (09:58)
[2020-01-15] MEDS: MEPERIDINE HCL 25 MG/ML SYR ONE ×2 (11:30→11:45)
--- NOTE | 2020-01-15 11:35 | P.BOP ---
Preoperative diagnosis: acute cholecystitis, symptomatic cholelithiasis Postoperative diagnosis: same Primary procedure: Laparoscopic cholecystectomy Estimated blood loss: <10cc Specimen: gb Findings: as above Anesthesia: General Complications: None Transferred to: Recovery Room Condition: Good
[2020-01-15 11:38] VITALS: O2SAT 100
--- NOTE | 2020-01-15 13:52 | OP ---
Date of Procedure: 01/15/2020 Surgeon: Grey Llamas MD Preoperative Diagnoses: Acute cholecystitis and symptomatic cholelithiasis. Postoperative Diagnosis: Acute cholecystitis and symptomatic cholelithiasis. Procedure: Laparoscopic cholecystectomy. Estimated Blood Loss: Less than 10 mL. Specimen: Gallbladder. Finding: As above. Indications: This is a case of a 29-year-old patient with above diagnosis. Fully explained the bene fits, alternatives, and risks of laparoscopic possible open cholecystectomy, which include, but not l imited to infection, bleeding, damage to adjacent structures, anesthesia complication, cholelithiasis , bile leak, pancreatitis, MA, and even . She also understands this may not relieve any symptom s. She might need more than one surgical intervention. She understood, signed a consent. Description Of Procedure: The patient was brought to the operating room, placed in supine position. Anesthesia was done without complication. Abdominal area was prepped and draped in the usual steril e fashion. Marcaine 0.5% was injected for local anesthetic followed by sharp incision of the skin in the infraumbilical region. The incision was carried down to fascia, which was opened under direct v ision. Peritoneum was encountered, opened under direct vision. Vicryl #1 placed inside the fascia. Cydney trocar was carefully introduced. No bleeding was obtained. I placed 3 more trocars, 5 mm ea ch one of them, 1 in epigastric area, 2 in the right upper quadrant using same technique, which consi sted of local anesthetic, sharp incision of the skin, and introduction of the trocars under direct vi tammy. This allowed me to put a grasper in the fundus of the gallbladder and another grasper in the i nfundibulum, retracted the gallbladder in the inferolateral fashion exposing the triangle of Calot ob taining critical view. The cystic duct and cystic artery were clearly isolated freed circumferential ly and a connection between those and the gallbladder was clearly identified. We proceeded to ligate those by using at least 3 clips proximal, 1 clip distal, ligation in middle. Same was done with cys tic artery. No bile leak. No bleeding. The gallbladder was removed from liver using Bovie cauteriz er and removed from abdominal cavity using EndoCatch through the umbilical incision. The area was in spected once again. No bile leak. No bleeding. At that moment, I proceeded to remove the trocars u nder direct vision, deflated pneumoperitoneum, closed the fascia with 1 Vicryl, irrigated subcutaneou s tissue and was closed with 3-0 chromic and skin with trey. Sponge count and instrument counts c orrect. The patient tolerated the procedure well. The patient was sent to recovery in stable condit ion. JONAH/GEORGE Voice ID: [id number] Report ID: [id number]
--- NOTE | 2020-01-15 13:55 | OP ---
Surgeon: Grey Llamas MD Diagnoses: Acute cholecystitis and symptomatic cholelithiasis. Procedure: Laparoscopic cholecystectomy. Disposition: Home. Activity: As tolerated. No heavy lifting. Plan: Follow up in my office in 1 week. Call for appointment at [phone]. Keep area dry for 48 elisa rs, then may shower. Keep trey intact. Medications include Augmentin 875 p.o. q.12 and Ultracet q.4 hours p.r.n. pain. She will be discharged home if she tolerates the diet. JONAH/GEORGE Voice ID: [id number] Report ID: [id number]
[2020-01-15 14:15] VITALS: BP 104/59; TEMP 97
== END 2020-01-15 15:35 | disposition home or self-care (01) | DRG 419 ==
LOC: ER 07:56 → ERHOLD 10:29 → 2ND 13:20
PROVIDERS: ADMIT Surgery; ATTEND Surgery
PROC: 0FT44ZZ Resection of Gallbladder, Percutaneous Endoscopic Approach (ICD-10-PCS; principal; 2020-01-15 10:00)
DX: K80.00 Calculus of gallbladder with acute cholecystitis without obstruction (principal); Z88.1 Allergy status to other antibiotic agents; Z86.711 Personal history of pulmonary embolism
CPT/HCPCS: 36415; 76705; 80048; 80076; 81003; 81025; 83690; 85025; 88304; 94010; 96361; 96365; 96375; 99285; J0500; J1644; J2175; J2250; J2405; J2543; J2704; J2710; J3010; J7030; J7120; J7799; U0002

== ENCOUNTER 2021-11-01 17:09 | Emergency (ER) | payer OTHER, SELFPAY ==
[2021-11-01] MEDS ORDERED: ACETAMINOPHEN 500 MG TAB ONE (17:35)
--- NOTE | 2021-11-01 19:11 | ER ---
Nurse's Notes [facility] Name: Maricel Karimi Age: 31 yrs Sex: Female : 1990 Arrival Date: 11/01/2021 Time: 17:11 Bed 11 Private MD: Diagnosis: Coronavirus infection, unspecified Presentation: 11/01 17:31 Chief complaint: Patient states: Fever, malaise, bodyaches, PERDUE, sore throat x 1 day. jl7 Coronavirus screen: Vaccine status: Patient reports being unvaccinated. fatigue, fever, muscle pain, Client presents with at least one sign or symptom that may indicate coronavirus-19. Standard/surgical mask placed on the client. Provider contacted for isolation considerations. Ebola Screen: No symptoms or risks identified at this time. Initial Sepsis Screen: Does the patient meet any 2 criteria? No. Patient's initial sepsis screen is negative. Does the patient have a suspected source of infection? No. Patient's initial sepsis screen is negative. Risk Assessment: Do you want to hurt yourself or someone else? Patient reports no desire to harm self or others. Onset of symptoms was October 31, 2021. 17:31 Method Of Arrival: Ambulatory 7 17:31 Acuity: DUGLAS 4 jl7 Triage Assessment: 17:33 General: Appears in no apparent distress. uncomfortable, ill, Behavior is calm, jl7 cooperative, appropriate for age. Pain: Complains of pain in all over Pain currently is 10 out of 10 on a pain scale. 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 - Social history:: Smoking status: Patient denies any tobacco usage or history of. Screenin:45 Abuse screen: Denies threats or abuse. Denies injuries from another. Nutritional jl7 screening: No deficits noted. Tuberculosis screening: No symptoms or risk factors identified. Fall Risk None identified. Assessment: 19:49 General: Appears in no apparent distress. comfortable, Behavior is calm, cooperative, tw5 appropriate for age. Vital Signs: 17:31 BP 114 / 75; Pulse 124; Resp 18; Temp 101.7; Pulse Ox 98% ; Weight 74.84 kg; Height 5 jl7 ft. 0 in. (152.40 cm); Pain 10/10; 17:31 Body Mass Index 32.22 (74.84 kg, 152.40 cm) jl7 ED Course: 17:11 Patient arrived in ED. as 17:13 Noelle Gee FNP-C is [facility]. kb 17:13 Skyler Khoury DO is Attending Physician. kb 17:26 Oneal Bennett, FIDELIA is Primary Nurse. jl7 17:30 COVID swab sent to lab. Flu and/or RSV swab sent to lab. jl7 17:33 Triage completed. jl7 17:33 Arm band placed on right wrist. jl7 17:45 Patient has correct armband on for positive identification. jl7 19:49 No provider procedures requiring assistance completed. Patient did not have IV access tw5 during this emergency room visit. Administered Medications: 17:35 Drug: Tylenol 1000 mg Route: PO; jl7 Medication: 17:45 VIS not applicable for this client. jl7 Outcome: 19:10 Discharge ordered by . kb 19:49 Discharged to home ambulatory. tw5 19:49 Condition: good 19:49 Discharge instructions given to patient, Instructed on discharge instructions, follow up and referral plans. COVID ISOLATION Demonstrated understanding of instructions, follow-up care. 19:49 Patient left the ED. tw5 Signatures: Noelle Gee FNP-C FNP-Irina Humphrey as Oneal Bennett, RN RN jl7 Adela Chiu tw5
--- NOTE | 2021-11-01 19:11 | EDPHYS ---
Physician Documentation [facility] Name: Maricel Karimi Age: 31 yrs Sex: Female : 1990 Arrival Date: 11/01/2021 Time: 17:11 Bed 11 Private MD: ED Physician Skyler Khoury HPI: 11/02 00:11 This 31 yrs old Female presents to ER via Ambulatory with complaints of Pain All Over, kb Fever. 00:11 The patient or guardian reports cough, that is intermittent, described as mild, flu kb symptoms, low-grade fever, myalgias. Onset: The symptoms/episode began/occurred yesterday. Severity of symptoms: At their worst the symptoms were moderate, in the emergency department the symptoms are unchanged. Modifying factors: The symptoms are alleviated by nothing, the symptoms are aggravated by nothing. Associated signs and symptoms: Pertinent positives: fever, sore throat. The patient has not experienced similar symptoms in the past. The patient has not recently seen a physician. 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 - Social history:: Smoking status: Patient denies any tobacco usage or history of. ROS: 11/02 00:10 Abdomen/GI: Negative for abdominal pain, nausea, vomiting, diarrhea, and constipation. kb Constitutional: Positive for body aches, chills, fatigue, fever, malaise. ENT: Positive for sore throat. Respiratory: Positive for cough. Neuro: Positive for headache. All other systems are negative. Exam: 00:10 Constitutional: This is a well developed, well nourished patient who is awake, alert, kb and in no acute distress. Head/Face: Normocephalic, atraumatic. ENT: Moist Mucous membranes Cardiovascular: Regular rate and rhythm with a normal S1 and S2. No gallops, murmurs, or rubs. No pulse deficits. Respiratory: Respirations even and unlabored. No increased work of breathing. Talking in full sentences Abdomen/GI: Soft, non-tender. No distention Skin: Warm, dry with normal turgor. Normal color. MS/ Extremity: Pulses equal, no cyanosis. Neurovascular intact. Full, normal range of motion. Neuro: Awake and alert, GCS 15, oriented to person, place, time, and situation. Moves all extremities. Normal gait. Psych: Awake, alert, with orientation to person, place and time. Behavior, mood, and affect are within normal limits. Vital Signs: 11/01 17:31 BP 114 / 75; Pulse 124; Resp 18; Temp 101.7; Pulse Ox 98% ; Weight 74.84 kg; Height 5 jl7 ft. 0 in. (152.40 cm); Pain 10; 17:31 Body Mass Index 32.22 (74.84 kg, 152.40 cm) jl7 MDM: 17:19 Patient medically screened. kb 11/02 00:10 Data reviewed: vital signs, nurses notes. Data interpreted: Pulse oximetry: on room air kb is 98 %. Interpretation: normal. Counseling: I had a detailed discussion with the patient and/or guardian regarding: the historical points, exam findings, and any diagnostic results supporting the discharge/admit diagnosis, lab results, the need for outpatient follow up, a family practitioner, to return to the emergency department if symptoms worsen or persist or if there are any questions or concerns that arise at home. 11/01 17:19 Order name: Flu; Complete Time: 18:01 kb 11/01 17:19 Order name: COVID-19 SARS RT PCR (Document "Date of Onset" if Symptomatic); Complete kb Time: 19:10 Administered Medications: 11/01 17:35 Drug: Tylenol 1000 mg Route: PO; jl7 Disposition Summary: 11/01/21 19:10 Discharge Ordered Location: Home kb Condition: Stable kb Diagnosis - Coronavirus infection, unspecified kb Followup: kb - With: Private Physician - When: 2 - 3 days - Reason: Recheck today's complaints, Continuance of care, Re-evaluation by your physician Followup: kb - With: Emergency Department - When: As needed - Reason: Worsening of condition Discharge Instructions: - Discharge Summary Sheet kb - Viral Respiratory Infection, [id number] kb - COVID-19 kb Forms: - Medication Reconciliation Form kb - Thank You Letter kb - Work release form kb - Antibiotic Education kb - Prescription Opioid Use kb Signatures: Dispatcher [employer] Noelle Chong, MELYC JESSY-Oneal Hitchcock, RN RN jl7
[2021-11-01 19:56] VITALS: BP 114/75; TEMP 101.7; O2SAT 98
== END 2021-11-01 19:49 | disposition home or self-care (01) ==
LOC: ER 17:09
DX: U07.1 COVID-19 (principal); Z88.1 Allergy status to other antibiotic agents; Z88.2 Allergy status to sulfonamides; Z88.5 Allergy status to narcotic agent
CPT/HCPCS: 87804 ×2; U0003